=== PATIENT | female | born 1965 | race Hispanic/Latino ===

== ENCOUNTER 2018-12-28 10:23 | Emergency (ER) | payer MEDICARE ==
[2018-12-28 10:39] VITALS: BP 103/65
--- NOTE | 2018-12-28 11:53 | Emergency Department Report ---
ED Fall HPI - General Chief Complaint: Nausea/Vomiting/Diarrhea Stated Complaint: PAIN Source: patient Mode of arrival: Ambulatory - History of Present Illness Initial Comments: This is a 53-year-old female who presents to the emergency room for bruising and pain in the right lower extremity. Patient states she fell 3 days ago while putting trash in the bin and fell from ground level. Patient states she is at [facility] one incident occurred. Patient denies hitting her here. Reports landing on right side of body with fall. Patient medical history of anxiety and schizophrenia. Patient states she is not currently taking blood thinners. Reports some warmth, swelling, and pain in the right lower extremity. She denies numbness or tingling, weakness, or paresthesias. 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 Witnessed: yes, by living facility s Place Fall Occurred: street Loss of Consciousness: none Prolonged Down Time?: no Symptoms Prior to Fall: none Location - Extremities: Right: Leg Severity: moderate Severity scale (0 -10): 6 Quality: aching Context: tripped/slipped Associated Symptoms: denies - Related Data Allergies Allergy/AdvReac Type Severity Reaction Status Date / Time No Known Allergies Allergy Unverified 12/28/18 10:36 ED Review of Systems ROS: Stated complaint: PAIN Other details as noted in HPI Constitutional: denies: chills, fever Respiratory: denies: cough, shortness of breath, wheezing Cardiovascular: denies: chest pain, palpitations Gastrointestinal: denies: abdominal pain, nausea, diarrhea Skin: other (bruising and swelling to RLE). denies: rash, lesions Neurological: denies: headache, weakness, paresthesias Psychiatric: denies: anxiety, depression ED Past Medical Hx - Past Medical History Previous Medical History?: No - Surgical History Past Surgical History?: No - Social History Smoking Status: Never Smoker Substance Use Type: None ED Physical Exam - General Limitations: No Limitations General appearance: alert, in no apparent distress, obese - Respiratory Respiratory exam: Present: normal lung sounds bilaterally. Absent: respiratory distress - Cardiovascular Cardiovascular Exam: Present: regular rate, normal rhythm. Absent: systolic murmur, diastolic murmur, rubs, gallop - GI/Abdominal GI/Abdominal exam: Present: soft, normal bowel sounds - Extremities Exam Extremities exam: Present: full ROM, normal capillary refill. Absent: joint swelling, calf tenderness - Expanded Lower Extremity Exam Right Lower Leg exam: Present: full ROM, tenderness (tenderness, swelling, and ecchymosis to lateral tibia/fibula), swelling, ecchymosis. Absent: abrasion, laceration, deformity, crepidus, dislocation, erythema, palpable cord, Varun's sign Ankle exam: Present: normal inspection, full ROM Foot/Toe exam: Present: normal inspection, full ROM Neuro vascular tendon exam: Present: no vascular compromise Gait: Positive: observed and limited by pain - Neurological Exam Neurological exam: Present: alert, oriented X3 - Psychiatric Psychiatric exam: Present: normal affect, normal mood - Skin Skin exam: Present: warm, dry, intact, normal color. Absent: rash ED Course Vital Signs 12/28/18 10:36 Temperature 98.6 F Pulse Rate 105 H Respiratory 18 Rate Blood Pressure 103/65 O2 Sat by Pulse 94 Oximetry ED Medical Decision Making - Radiology Data Radiology results: report reviewed PROCEDURE: VL VENOUS DUPLEX LE RT TECHNIQUE: Grayscale, color flow and spectral waveform images were obtained of right lower extremity. HISTORY: pain and bruising RLE, r/o DVT COMPARISON: None FINDINGS: There is no deep venous thrombosis seen in the right lower extremity. Flow is demonstrated by color flow and spectral waveform imaging. There is appropriate wall compression and augmentation. There is also no evidence of superficial venous thrombus. IMPRESSION: There is no evidence for DVT in right lower extremity. - Medical Decision Making Patient was examined by me. Vitals are normal and patient is in no acute distress. Obtained a duplex Doppler of right lower extremity. The report was reviewed, There is no evidence for DVT in right lower extremity. Patient informed of results. Patient states she was seen in this ER yesterday. Patient admitted under a different name today. X-ray of right knee obtained yesterday and findings prepatellar soft tissue swelling with no joint effusion. Instructed to take ibuprofen or naproxen for pain. Apply ice or heat to the area. Plan discussed with patient to discharge home and treat outpatient. She agrees with ER plan. Patient discharged home in stable condition. Follow up with PCP in 2-3 days. Critical care attestation.: If time is entered above; I have spent that time in minutes in the direct care of this critically ill patient, excluding procedure time. ED Disposition Clinical Impression: Right knee pain Qualifiers: Chronicity: acute Qualified Code(s): M25.561 - Pain in right knee Fall Qualifiers: Encounter type: subsequent encounter Qualified Code(s): W19.XXXD - Unspecified fall, subsequent encounter Disposition: TO HOME OR SELFCARE Is pt being admited?: No Does the pt Need Aspirin: No Condition: Stable Instructions: Fall Prevention for Older Adults (ED), Contusion in Adults (ED), Arthralgia (ED) Additional Instructions: Rest Use ice or heat on affected area for 20 minutes and off for 2 hours. Follow up with Primary Care Provider in 2-3 days. Referrals: ANICETO KHAN MD [Primary Care Provider] - 3-5 Days [facility] [Outside] - 3-5 Days [facility] [Outside] - 3-5 Days Forms: Work/School Release Form(ED) Time of Disposition: 13:15
[2018-12-28 12:58] LABS: Bacteria,Urine 1+ /HPF (Negative); Bilirubin,Urine NEG (Negative); Blood,Urine NEG (Negative); Color,Urine Amber (Yellow); Mucus,Urine 2+ /HPF; Urobilinogen,Urine < 2.0 mg/dL (<2.0)
--- NOTE | 2018-12-28 13:00 | Vascular Lab Report ---
PROCEDURE: VL VENOUS DUPLEX LE RT TECHNIQUE: Grayscale, color flow and spectral waveform images were obtained of right lower extremity . HISTORY: pain and bruising RLE, r/o DVT COMPARISON: None FINDINGS: There is no deep venous thrombosis seen in the right lower extremity. Flow is demonstrated by color flow and spectral waveform imaging. There is appropriate wall compression and augmentation. There is also no evidence of superficial venous thrombus. IMPRESSION: There is no evidence for DVT in right lower extremity. This document is electronically signed by Josephine Barrett MD., December 28 2018 01:58:25 PM ET
== END 2018-12-28 13:28 | disposition home or self-care (01) ==
LOC: ED 10:23
DX: S80.01XA Contusion of right knee, initial encounter (principal); W01.198A Fall on same level from slipping, tripping and stumbling with subsequent striking against other object, initial encounter; Y93.89 Activity, other specified; Y92.488 Other paved roadways as the place of occurrence of the external cause; Y99.8 Other external cause status
CPT/HCPCS: 81001; 99284